=== PATIENT | female | born 1960 | race Caucasian/White ===

== ENCOUNTER 2021-06-07 08:57 | Outpatient (CLI) | payer BC | END 2021-06-07 08:58 | disposition home or self-care (01) | LOC: CSHRAD 08:57 | PROVIDERS: ATTEND Psychiatry & Neurology Neurology | DX: I48.91 Unspecified atrial fibrillation (principal); Z98.1 Arthrodesis status | CPT/HCPCS: 71046; 72100 ==

== ENCOUNTER 2021-09-29 12:35 | Inpatient (IN) | payer MEDICAID ==
[2021-09-29 15:01] VITALS: BMI 51.8
[2021-09-29 16:52] LABS: Troponin I Less than 0.010 ng/mL (< 0.028)
[2021-09-29 17:37] LABS: Cardiac Risk 3.4 (Less than 4.5); Cholesterol 136 mg/dl (< 200 Desired); HDL Cholesterol 40 mg/dL (>60 Neg Risk); LDL Cholesterol, Calculated 78 mg/dL; Magnesium 1.8 mg/dL (1.6-2.6); Triglycerides 92 mg/dL (Less than 150)
[2021-09-29] MEDS ORDERED: Gabapentin 300 MG CAP PO SCH (18:00)
[2021-09-29 19:28] LABS: Troponin I Less than 0.010 ng/mL (< 0.028)
[2021-09-29] MEDS: Acetaminophen 325 MG TAB PO PRN (21:41)
[2021-09-29] MEDS: Zolpidem Tartrate 5 MG TAB PO SCH (22:23)
[2021-09-29] MEDS: Methocarbamol 500 MG TAB PO SCH (22:24)
[2021-09-30 04:00] LABS: #Eosinphils 0.1 10x3/uL (0.0-0.5); #Monocytes 0.2 10x3/uL (0.0-1.1); %Basophils 0.3 % (0.0-2.0); %Eosinophils 3.9 % (0.0-6.0); %Lymphocytes 43.3 % (18.0-47.0); %Monocytes 7.1 % (0.0-10.0); Hemoglobin 12.5 g/dL (12.0-15.5); Mean Corpuscular HGB CONC 33.7 g/dL (32.0-36.0); Mean Corpuscular Hemoglobin 33.3 pg (27.0-33.0); Mean Corpuscular Volume 98.9 fl (81.6-98.3); Mean Platelet Volume 9.5 fl (7.4-10.4); Platelet Count 135 10x3/uL (150-450); RBC Distribution Width 11.8 % (11.5-14.5); Red Blood Cell (RBC) Count 3.75 10x6/uL (3.90-5.03); White Blood Cell (WBC) Count 3.4 10x3/uL (3.5-10.5)
[2021-09-30 04:01] LABS: #Neutrophils 1.5 10x3/uL (1.5-8.4); %Neutrophils 45.4 % (40.0-75.0)
[2021-09-30 04:13] LABS: Anion Gap 14 mmol/L (10-20); BUN (Urea Nitrogen) 18 mg/dL (9.8-20.1); Calc. Creatinine Clearance 100 mL/min (70-130); Carbon Dioxide 25 mmol/L (23-31); Chloride 106 mmol/L (98-107); Glucose 87 mg/dL (80-115); Potassium 4.5 mmol/L (3.5-5.1); Sodium 140 mmol/L (136-145)
[2021-09-30 04:15] LABS: Troponin I Less than 0.010 ng/mL (< 0.028)
[2021-09-30] MEDS ORDERED: Aspirin Chewable 81 MG TAB PO SCH (09:00)
[2021-09-30] MEDS: Gabapentin 300 MG CAP PO SCH ×3 (09:19→21:45)
[2021-09-30] MEDS: Apixaban 5 MG TAB PO SCH (09:19)
[2021-09-30] MEDS: Methocarbamol 500 MG TAB PO SCH ×3 (09:19→21:51)
[2021-09-30 11:51] LABS: SARS-CoV-2 PCR by NAA Not Detected (NotDetected)
[2021-09-30] MEDS: Zolpidem Tartrate 5 MG TAB PO SCH (21:45)
[2021-09-30] MEDS: Acetaminophen 325 MG TAB PO PRN (21:49)
[2021-10-01] MEDS: Acetaminophen 325 MG TAB PO PRN ×2 (06:02→17:14)
[2021-10-01] MEDS: Methocarbamol 500 MG TAB PO SCH ×3 (08:27→20:12)
[2021-10-01] MEDS: Apixaban 5 MG TAB PO SCH (08:27)
[2021-10-01] MEDS: Gabapentin 300 MG CAP PO SCH ×3 (08:28→20:12)
[2021-10-01] MEDS: Zolpidem Tartrate 5 MG TAB PO SCH (20:13)
[2021-10-02] MEDS ORDERED: Lidocaine 5% Patch TD PRN (02:23)
[2021-10-02] MEDS: Gabapentin 300 MG CAP PO SCH (07:53)
[2021-10-02] MEDS: Apixaban 5 MG TAB PO SCH (07:54)
[2021-10-02] MEDS: Methocarbamol 500 MG TAB PO SCH (07:54)
[2021-10-02] MEDS ORDERED: FLUoxetine HCl 20 MG CAP PO SCH (09:45)
[2021-10-02 12:39] VITALS: BP 136/79; TEMP 97.1
[2021-10-02] MEDS ORDERED: Transdermal Patch Removal TOP SCH (14:30)
== END 2021-10-02 14:15 | disposition home or self-care (01) | DRG 313 ==
LOC: OBSVTOIN 12:35 → CSHTELE 12:35 → INTOOBSV 12:35
PROVIDERS: ADMIT Emergency Medicine; ATTEND Family Medicine
DX: R07.89 Other chest pain (principal); Z20.822 Contact with and (suspected) exposure to COVID-19; I10 Essential (primary) hypertension; F41.9 Anxiety disorder, unspecified; F32.A Depression, unspecified; F12.90 Cannabis use, unspecified, uncomplicated; G83.11 Monoplegia of lower limb affecting right dominant side; I48.0 Paroxysmal atrial fibrillation; G62.9 Polyneuropathy, unspecified; Z86.73 Personal history of transient ischemic attack (TIA), and cerebral infarction without residual deficits; Z95.0 Presence of cardiac pacemaker; I25.2 Old myocardial infarction; Z79.01 Long term (current) use of anticoagulants; Z88.8 Allergy status to other drugs, medicaments and biological substances; Z79.899 Other long term (current) drug therapy; Z90.49 Acquired absence of other specified parts of digestive tract; Z98.84 Bariatric surgery status; Z87.891 Personal history of nicotine dependence; Z99.3 Dependence on wheelchair
CPT/HCPCS: 36415; 80048; 80061; 83735; 84443; 84484; 85025; 93306; 94760; U0003; U0005

== ENCOUNTER 2022-12-21 10:08 | Day surgery (SDC) | payer MEDICARE ==
[2022-12-21] MEDS ORDERED: Lidocaine 1% PF 5 ML VIAL ONE (10:35)
[2022-12-21] MEDS ORDERED: Sodium Bicarbonate 2.5 MEQ/5 ML VIAL ONE (10:36)
[2022-12-21] MEDS ORDERED: Iopamidol-M 200 41% 10 ML VIAL FS ONE (11:56)
[2022-12-21] MEDS ORDERED: Iopamidol-M 200 41% 20 ML VIAL ONE (12:10)
== END 2022-12-21 12:35 | disposition home or self-care (01) ==
LOC: CSHRAD 10:08
PROVIDERS: ATTEND Nurse Practitioner Family
DX: M96.1 Postlaminectomy syndrome, not elsewhere classified (principal)
CPT/HCPCS: 62304; 72132; Q9966